=== PATIENT | female | born 1945 | race Two or more races ===

== ENCOUNTER 2021-12-09 12:03 | Inpatient (IN) | payer OTHER ==
[~2021-12-09] VITALS: Ht 154.9 cm; Wt 81.0 kg
[2021-12-09] MEDS ORDERED: SODIUM CHLORIDE 0.9% 1,000 ML IV ONE ×2 (12:15→19:30)
[2021-12-09 14:44] LABS: INR 1.13 (0.9-1.15); Partial Thromboplastin Time 31.9 sec (23.6-33.0)
[2021-12-09 14:45] LABS: Basophils # (auto) 0.1 10 ^3/uL (0-0.2); Basophils % (auto) 0.4 % (0.0-2.0); Eosinophils # (auto) 0.1 10 ^3/uL (0-0.8); Eosinophils % (auto) 0.3 % (0.0-7.0); Hematocrit 42.4 % (36.0-46.0); Hemoglobin 13.7 g/dL (12.2-16.2); Lymphocytes # (auto) 0.2 10 ^3/uL (0.4-5.4); Lymphocytes % (auto) 0.7 % (10.0-50.0); Mean Corpuscular Hemoglobin 28.3 pg (28.0-32.0); Mean Corpuscular Hgb Conc. 32.4 g/dL (32.0-36.0); Mean Corpuscular Volume 87.5 fL (80.0-100.0); Monocytes # (auto) 1.7 10 ^3/uL (0-1.3); Monocytes % (auto) 6.8 % (0.0-12.0); Neutrophils # (auto) 22.7 10 ^3/uL (1.6-8.6); Neutrophils % (auto) 91.8 % (37.0-80.0); Red Blood Cells 4.84 10^6/uL (4.0-5.20); Red Cell Distribution Width 17.8 % (11.8-14.3); White Blood Cell 24.8 10^3/uL (4.4-10.8)
[2021-12-09 15:02] LABS: Albumin 2.1 g/dL (3.4-5.0); Calcium 8.7 mg/dL (8.5-10.1); Magnesium 3.1 mg/dL (1.6-2.6)
[2021-12-09 15:07] LABS: BUN/Creatinine Ratio 29.7; Bilirubin, Total 0.7 mg/dL (0.2-1.0); Total Protein 6.2 g/dL (6.4-8.2)
[2021-12-09 15:23] LABS: Urine Bacteria NONE SEEN /hpf (None Seen); Urine Blood Negative /uL (Negative); Urine Hyaline Cast FEW /lpf (0 - 2); Urine Mucus FEW (None Seen); Urine Specific Gravity 1.017 (1.001-1.035); Urine WBC 1 /hpf (0 - 5)
[2021-12-09 15:25] LABS: Potassium 5.7 mmol/L (3.5-5.1)
[2021-12-09] MEDS ORDERED: MORPHINE SULFATE 4 MG/ML SYR/VIAL IV ONE (15:30)
[2021-12-09] MEDS ORDERED: ONDANSETRON HCL 4 MG/2 ML VIAL IV ONE (15:30)
[2021-12-09] MEDS ORDERED: AZITHROMYCIN 500MG/ 250ML 250 ML IV ONE (16:00)
[2021-12-09] MEDS ORDERED: cefTRIAXone 1GM/50ML D5W 50 ML IV ONE (16:00)
[2021-12-09] MEDS ORDERED: SODIUM BICARBONATE 8.4 % INJ 50ML VIAL IV ONE (17:00)
[2021-12-09] MEDS ORDERED: CALCIUM GLUC 1,000mg/50ml-NS 50 ML IV ONE (17:00)
[2021-12-09] MEDS ORDERED: SODIUM CHLORIDE 0.9% 500 ML IV ONE (18:15)
[2021-12-09] MEDS ORDERED: NITROGLYCERIN 0.4 MG SL TAB SL PRN (18:45)
[2021-12-09] MEDS ORDERED: METOPROLOL TARTRATE 1MG/1ML-5ML VIAL IV ONE ×2 (18:45→19:00)
[2021-12-09] MEDS ORDERED: MORPHINE SULFATE INJ 2 MG/ml SYRG IV PRN (18:45)
[2021-12-09] MEDS ORDERED: ENOXAPARIN SOD 40 MG/0.4 ML SYRINGE SC ONE (19:15)
[2021-12-09] MEDS ORDERED: CARVEDILOL 12.5 MG TAB PO ONE (19:15)
[2021-12-09] MEDS ORDERED: ASPirin 81 mg TAB PO ONE (19:15)
[2021-12-09] MEDS ORDERED: ENOXAPARIN SOD 30 MG/0.3 ML SYRINGE SC ONE (19:30)
[2021-12-09 19:35] LABS: Cholesterol 136 mg/dL (< 200)
[2021-12-09 19:38] LABS: HDL Cholesterol 64 mg/dL (40-59); LDL Cholesterol 58 mg/dL (< 100); Triglycerides 78 mg/dL (< 150)
[2021-12-09 19:55] LABS: Amphetamine Screen, Urine NEGATIVE (NEGATIVE); Barbiturate Scree,Urine NEGATIVE (NEGATIVE); Benzodiazephine Screen, Urine NEGATIVE (NEGATIVE); Cannabinoid Screen, Urine NEGATIVE (NEGATIVE); Cocaine Screen, Urine NEGATIVE (NEGATIVE); Opiate Scree,Urine NEGATIVE (NEGATIVE); Phencyclidine Screen, Urine NEGATIVE (NEGATIVE)
[2021-12-09] MEDS ORDERED: ALBUMIN 5% 250 ML IV ONE (21:30)
[2021-12-09] MEDS: CLINDAMYCIN 300MG IV 50 ML IV SCH (22:15)
[2021-12-09] MEDS: cefTRIAXone 1GM/50ML D5W 50 ML IV SCH (23:13)
[2021-12-09] MEDS: PHENYLEPHRINE IV 250 ML IV SCH (23:36)
[2021-12-10] MEDS: PHENYLEPHRINE IV 250 ML IV SCH ×3 (05:58→22:52)
[2021-12-10] MEDS: CLINDAMYCIN 300MG IV 50 ML IV SCH ×3 (06:20→22:42)
[2021-12-10 07:02] LABS: Hematocrit 37.8 % (36.0-46.0); Hemoglobin 12.5 g/dL (12.2-16.2); Mean Corpuscular Volume 87.7 fL (80.0-100.0); Red Blood Cells 4.31 10^6/uL (4.0-5.20); Red Cell Distribution Width 17.9 % (11.8-14.3); White Blood Cell 20.3 10^3/uL (4.4-10.8)
[2021-12-10 07:05] LABS: BUN/Creatinine Ratio 28.5; Calcium 8.6 mg/dL (8.5-10.1); Potassium 4.9 mmol/L (3.5-5.1)
[2021-12-10 07:12] LABS: Albumin 2.2 g/dL (3.4-5.0); Basophils % (manual) 0 (0.0-2.0); Bilirubin, Total 0.5 mg/dL (0.2-1.0); Blast Cells 0; Eosinophils % (manual) 0 (0-7); Metamyelocytes % 0; Promyelocytes % 0; Reactive Lymphocytes 0; Total Protein 5.8 g/dL (6.4-8.2)
[2021-12-10 08:30] LABS: Band Neutrophils % (manual) 1; Lymphocytes % (manual) 1 (10.0-50.0); Monocytes % (manual) 7 (0-12); Myelocytes % 2
[2021-12-10] MEDS: MORPHINE SULFATE INJ 2 MG/ml SYRG IV PRN ×2 (08:50→16:18)
[2021-12-10] MEDS: CARVEDILOL 12.5 MG TAB PO SCH ×2 (09:32→09:44)
[2021-12-10] MEDS: ENOXAPARIN SOD 30 MG/0.3 ML SYRINGE SC SCH (09:32)
[2021-12-10] MEDS: ASPirin 81 mg TAB PO SCH (09:44)
[2021-12-10] MEDS ORDERED: ENOXAPARIN SOD 40 MG/0.4 ML SYRINGE SC SCH (10:00)
[2021-12-10] MEDS ORDERED: DIGOXIN (250MCG/ML) 2 ML AMPULE IV ONE (17:30)
[2021-12-10] MEDS: ALBUMIN 25% 100 ML IV SCH (18:09)
[2021-12-10] MEDS: cefTRIAXone 1GM/50ML D5W 50 ML IV SCH (22:27)
[2021-12-10] MEDS: HYDROCORTISONE SOD SUCC 100 MG/2ML INJ VIAL IV SCH (22:47)
[2021-12-11] MEDS: ALBUMIN 25% 100 ML IV SCH ×2 (02:13→09:52)
[2021-12-11] MEDS: PHENYLEPHRINE IV 250 ML IV SCH ×2 (02:29→06:12)
[2021-12-11] MEDS: CLINDAMYCIN 300MG IV 50 ML IV SCH ×2 (05:55→14:00)
[2021-12-11] MEDS ORDERED: DIGOXIN (250MCG/ML) 2 ML AMPULE IV SCH (10:00)
[2021-12-11] MEDS: ENOXAPARIN SOD 30 MG/0.3 ML SYRINGE SC SCH (11:26)
[2021-12-11] MEDS: ASPirin 81 mg TAB PO SCH (11:26)
[2021-12-11] MEDS: HYDROCORTISONE SOD SUCC 100 MG/2ML INJ VIAL IV SCH (11:26)
[2021-12-11] MEDS: HYDROcodone-ACET 5/325MG TAB PO PRN (20:38)
[2021-12-11 21:08] LABS: Eosinophils # (auto) 0 10 ^3/uL (0-0.8); Hematocrit 33.5 % (36.0-46.0); Lymphocytes # (auto) 0.1 10 ^3/uL (0.4-5.4); Red Blood Cells 3.77 10^6/uL (4.0-5.20); Red Cell Distribution Width 18.3 % (11.8-14.3)
[2021-12-11 21:12] LABS: Basophils # (auto) 0 10 ^3/uL (0-0.2); Basophils % (auto) 0.1 % (0.0-2.0); Lymphocytes % (auto) 0.8 % (10.0-50.0); Mean Corpuscular Hemoglobin 29.1 pg (28.0-32.0); Mean Corpuscular Hgb Conc. 32.7 g/dL (32.0-36.0); Monocytes # (auto) 1.2 10 ^3/uL (0-1.3); Monocytes % (auto) 7.4 % (0.0-12.0); Neutrophils # (auto) 14.4 10 ^3/uL (1.6-8.6); Neutrophils % (auto) 91.7 % (37.0-80.0); Nucleated Red Blood Cells % 0.2 %; White Blood Cell 15.7 10^3/uL (4.4-10.8)
[2021-12-11 21:25] LABS: Albumin 2.6 g/dL (3.4-5.0); Calcium 8.1 mg/dL (8.5-10.1); Magnesium 2.5 mg/dL (1.6-2.6); Potassium 4.5 mmol/L (3.5-5.1)
[2021-12-11 21:28] LABS: BUN/Creatinine Ratio 32.6; Bilirubin, Total 0.6 mg/dL (0.2-1.0); Total Protein 5.7 g/dL (6.4-8.2)
[2021-12-11] MEDS ORDERED: SODIUM CHLORIDE 0.9% 1,000 ML IV ONE (21:30)
[2021-12-11] MEDS: SODIUM CHLORIDE 0.9% 1,000 ML IV SCH (21:30)
[2021-12-12] VITALS (40 sets, daily range): BP systolic 76–115; BP diastolic 49–76
[2021-12-12] MEDS: PHENYLEPHRINE IV 250 ML IV SCH ×3 (01:32→17:53)
[2021-12-12] MEDS: HYDROcodone-ACET 5/325MG TAB PO PRN ×2 (02:37→23:20)
[2021-12-12] MEDS: SODIUM CHLORIDE 0.9% 1,000 ML IV SCH ×2 (07:32→15:39)
[2021-12-12] MEDS: ASPirin 81 mg TAB PO SCH (09:01)
[2021-12-12] MEDS: ENOXAPARIN SOD 30 MG/0.3 ML SYRINGE SC SCH (09:53)
[2021-12-12 11:33] LABS: BUN/Creatinine Ratio 33.6; Calcium 8.5 mg/dL (8.5-10.1); Hematocrit 34.7 % (36.0-46.0); Hemoglobin 11.2 g/dL (12.2-16.2); Mean Corpuscular Hemoglobin 29.1 pg (28.0-32.0); Mean Corpuscular Hgb Conc. 32.4 g/dL (32.0-36.0); Potassium 4.4 mmol/L (3.5-5.1); Red Blood Cells 3.86 10^6/uL (4.0-5.20); Red Cell Distribution Width 18.8 % (11.8-14.3); White Blood Cell 16.4 10^3/uL (4.4-10.8)
[2021-12-12 11:40] LABS: Basophils % (manual) 0 (0.0-2.0); Blast Cells 0; Myelocytes % 0; Promyelocytes % 0; Reactive Lymphocytes 0
[2021-12-12] MEDS ORDERED: SODIUM CHLORIDE 0.9% 1,000 ML IV ONE (13:45)
[2021-12-12 13:55] LABS: Band Neutrophils % (manual) 23; Eosinophils % (manual) 1 (0-7); Lymphocytes % (manual) 1 (10.0-50.0); Metamyelocytes % 3; Monocytes % (manual) 7 (0-12)
[2021-12-12] MEDS ORDERED: levoFLOXacin 500MG 100 ML IV ONE (15:00)
[2021-12-12] MEDS: CLINDAMYCIN 600MG IV 50 ML IV SCH (22:00)
[2021-12-13] VITALS (44 sets, daily range): BP systolic 90–130; BP diastolic 44–91
[2021-12-13] MEDS: PHENYLEPHRINE IV 250 ML IV SCH ×3 (01:57→10:35)
[2021-12-13] MEDS: SODIUM CHLORIDE 0.9% 1,000 ML IV SCH ×2 (03:30→13:30)
[2021-12-13 03:54] LABS: Hematocrit 33.8 % (36.0-46.0); Hemoglobin 11.1 g/dL (12.2-16.2); Mean Corpuscular Hemoglobin 29.2 pg (28.0-32.0); Mean Corpuscular Hgb Conc. 32.8 g/dL (32.0-36.0); Red Cell Distribution Width 18.4 % (11.8-14.3); White Blood Cell 12.7 10^3/uL (4.4-10.8)
[2021-12-13 04:11] LABS: BUN/Creatinine Ratio 35.4; Calcium 8.3 mg/dL (8.5-10.1); Potassium 4.2 mmol/L (3.5-5.1)
[2021-12-13 04:15] LABS: Basophils % (manual) 0 (0.0-2.0); Blast Cells 0; Eosinophils % (manual) 0 (0-7); Myelocytes % 0; Promyelocytes % 0; Reactive Lymphocytes 0
[2021-12-13] MEDS: CLINDAMYCIN 600MG IV 50 ML IV SCH ×3 (06:11→22:09)
[2021-12-13 07:54] LABS: Band Neutrophils % (manual) 52; Lymphocytes % (manual) 1 (10.0-50.0); Metamyelocytes % 3; Monocytes % (manual) 4 (0-12)
[2021-12-13] MEDS: ASPirin 81 mg TAB PO SCH (09:00)
[2021-12-13] MEDS: levoFLOXacin 250MG 50 ML IV SCH (09:15)
[2021-12-13] MEDS: ENOXAPARIN SOD 30 MG/0.3 ML SYRINGE SC SCH (09:15)
[2021-12-13] MEDS: MIDODRINE HCL 10 MG TAB PO SCH ×2 (11:00→22:09)
[2021-12-13] MEDS ORDERED: SODIUM CHLORIDE 0.9% 1,000 ML IV ONE (11:00)
[2021-12-14] VITALS (38 sets, daily range): BP systolic 82–152; BP diastolic 50–115
[2021-12-14] MEDS: SODIUM CHLORIDE 0.9% 1,000 ML IV SCH (01:46)
[2021-12-14] MEDS: MORPHINE SULFATE INJ 2 MG/ml SYRG IV PRN (01:59)
[2021-12-14] MEDS ORDERED: dilTIAZem 125mg/125ml BAG KIT 100 ML IV SCH (03:00)
[2021-12-14] MEDS ORDERED: dilTIAZem 25 MG/5 ML VIAL IV ONE (03:10)
[2021-12-14] MEDS: PHENYLEPHRINE IV 250 ML IV SCH ×2 (03:15→11:35)
[2021-12-14 04:44] LABS: Hematocrit 38.2 % (36.0-46.0); Hemoglobin 11.9 g/dL (12.2-16.2); Mean Corpuscular Hemoglobin 28.6 pg (28.0-32.0); Mean Corpuscular Hgb Conc. 31.1 g/dL (32.0-36.0); Mean Corpuscular Volume 92.1 fL (80.0-100.0); Red Blood Cells 4.15 10^6/uL (4.0-5.20); Red Cell Distribution Width 19.1 % (11.8-14.3); White Blood Cell 15.4 10^3/uL (4.4-10.8)
[2021-12-14 04:55] LABS: Basophils % (manual) 0 (0.0-2.0); Blast Cells 0; Eosinophils % (manual) 0 (0-7); Myelocytes % 0; Promyelocytes % 0; Reactive Lymphocytes 0
[2021-12-14 05:01] LABS: BUN/Creatinine Ratio 34.1; Calcium 8.4 mg/dL (8.5-10.1); Potassium 4.6 mmol/L (3.5-5.1)
[2021-12-14] MEDS ORDERED: FUROSEMIDE 20 MG/2 ML VIAL IV ONE (05:45)
[2021-12-14] MEDS: CLINDAMYCIN 600MG IV 50 ML IV SCH ×2 (05:53→14:34)
[2021-12-14 06:31] LABS: Band Neutrophils % (manual) 2; Lymphocytes % (manual) 4 (10.0-50.0); Metamyelocytes % 2; Monocytes % (manual) 8 (0-12)
[2021-12-14] MEDS: MIDODRINE HCL 10 MG TAB PO SCH (09:36)
[2021-12-14] MEDS: ASPirin 81 mg TAB PO SCH (09:36)
[2021-12-14] MEDS: levoFLOXacin 250MG 50 ML IV SCH (09:37)
[2021-12-14] MEDS: Ensure HIGH Protein Chocolate 8oz Bottle PO SCH ×2 (14:32→18:52)
[2021-12-14] MEDS: ALBUTEROL SULF 2.5 MG/0.5ML(0.5%) NEB SOLN NEB PRN (15:18)
[2021-12-14] MEDS: METOPROLOL TARTRATE 25 MG TAB PO SCH ×2 (16:00→22:02)
[2021-12-14] MEDS: APIXABAN 5 MG TAB PO SCH (21:55)
[2021-12-15] VITALS: BP 110/63
[2021-12-15 01:00] VITALS: BP 106/68
[2021-12-15] MEDS: Ensure HIGH Protein Chocolate 8oz Bottle PO SCH ×3 (08:00→18:00)
[2021-12-15] MEDS: levoFLOXacin 250MG 50 ML IV SCH (10:30)
[2021-12-15] MEDS: APIXABAN 5 MG TAB PO SCH ×2 (10:45→22:14)
[2021-12-15] MEDS: ASPirin 81 mg TAB PO SCH (10:45)
[2021-12-15] MEDS: METOPROLOL TARTRATE 25 MG TAB PO SCH ×2 (10:46→22:15)
[2021-12-15 14:39] LABS: Hemoglobin 11.4 g/dL (12.2-16.2); Mean Corpuscular Hemoglobin 28.3 pg (28.0-32.0); Mean Corpuscular Hgb Conc. 31.5 g/dL (32.0-36.0); Mean Corpuscular Volume 89.8 fL (80.0-100.0); Red Blood Cells 4.01 10^6/uL (4.0-5.20); Red Cell Distribution Width 18.9 % (11.8-14.3); White Blood Cell 16.1 10^3/uL (4.4-10.8)
[2021-12-15 14:56] LABS: Basophils % (manual) 0 (0.0-2.0); Blast Cells 0; Eosinophils % (manual) 0 (0-7); Promyelocytes % 0; Reactive Lymphocytes 0
[2021-12-15 15:01] LABS: BUN/Creatinine Ratio 31.2; Calcium 9.1 mg/dL (8.5-10.1)
[2021-12-15 15:57] LABS: Band Neutrophils % (manual) 3; Lymphocytes % (manual) 2 (10.0-50.0); Metamyelocytes % 1; Myelocytes % 1
[2021-12-15 15:58] LABS: Monocytes % (manual) 5 (0-12)
[2021-12-15 17:56] VITALS: BP 130/80
[2021-12-15 22:00] VITALS: BP 132/75
[2021-12-16] VITALS (61 sets, daily range): BP systolic 59–135; BP diastolic 30–73
[2021-12-16 07:27] LABS: Hematocrit 35.5 % (36.0-46.0); Hemoglobin 11.7 g/dL (12.2-16.2); Mean Corpuscular Hemoglobin 29.7 pg (28.0-32.0); Mean Corpuscular Hgb Conc. 32.8 g/dL (32.0-36.0); Mean Corpuscular Volume 90.6 fL (80.0-100.0); Red Blood Cells 3.92 10^6/uL (4.0-5.20); Red Cell Distribution Width 19.2 % (11.8-14.3); White Blood Cell 16.3 10^3/uL (4.4-10.8)
[2021-12-16] MEDS: Ensure HIGH Protein Chocolate 8oz Bottle PO SCH (07:53)
[2021-12-16 07:54] LABS: BUN/Creatinine Ratio 31.3; Potassium 5.5 mmol/L (3.5-5.1)
[2021-12-16 08:04] LABS: Basophils % (manual) 0 (0.0-2.0); Blast Cells 0; Eosinophils % (manual) 0 (0-7); Myelocytes % 0; Promyelocytes % 0; Reactive Lymphocytes 0
[2021-12-16 09:52] LABS: Band Neutrophils % (manual) 4; Lymphocytes % (manual) 2 (10.0-50.0); Metamyelocytes % 3; Monocytes % (manual) 7 (0-12)
[2021-12-16] MEDS: ASPirin 81 mg TAB PO SCH (10:00)
[2021-12-16] MEDS: APIXABAN 5 MG TAB PO SCH ×2 (10:00→22:25)
[2021-12-16] MEDS: METOPROLOL TARTRATE 25 MG TAB PO SCH ×2 (10:00→22:25)
[2021-12-16] MEDS ORDERED: AMIODARONE HCL (50 MG/ ML) 3 ML VIAL IV ONE (10:26)
[2021-12-16] MEDS ORDERED: fentaNYL Drip 2500mCg/250mlNS 250 ML IV ONE (10:26)
[2021-12-16] MEDS ORDERED: PHENYLEPHRINE IV 250 ML IV ONE (10:26)
[2021-12-16] MEDS ORDERED: AMIODARONE 450mg/250ml AE 250 ML IV ONE (10:27)
[2021-12-16] MEDS ORDERED: AMIODARONE HCL 150 MG in D5W 5% 100 ML IV ONE (10:30)
[2021-12-16] MEDS: MIDAZOLAM DRIP 50 mg/50mL 50 ML IV SCH ×2 (10:30→16:10)
[2021-12-16] MEDS ORDERED: VASOPRESSIN 50 UNITS in D5W 5% 247.5 ML IV SCH (10:30)
[2021-12-16] MEDS: PHENYLEPHRINE IV 250 ML IV SCH ×3 (10:30→18:07)
[2021-12-16 10:34] LABS: Hematocrit 40.1 % (36.0-46.0); Hemoglobin 12.5 g/dL (12.2-16.2); Mean Corpuscular Hemoglobin 28.5 pg (28.0-32.0); Mean Corpuscular Hgb Conc. 31.3 g/dL (32.0-36.0); Mean Corpuscular Volume 91.2 fL (80.0-100.0); Red Blood Cells 4.39 10^6/uL (4.0-5.20); Red Cell Distribution Width 19.8 % (11.8-14.3); White Blood Cell 18.2 10^3/uL (4.4-10.8)
[2021-12-16] MEDS: NOREPINEPHRINE 8 MG/250ML KIT 250 ML IV SCH (10:43)
[2021-12-16] MEDS ORDERED: AMIODARONE 450mg/250ml AE 250 ML IV SCH ×2 (10:45→16:45)
[2021-12-16 10:46] LABS: BUN/Creatinine Ratio 30.7; Calcium 8.6 mg/dL (8.5-10.1)
[2021-12-16 10:57] LABS: Basophils % (manual) 0 (0.0-2.0); Blast Cells 0; Eosinophils % (manual) 0 (0-7); Metamyelocytes % 0; Myelocytes % 0; Promyelocytes % 0; Reactive Lymphocytes 0
[2021-12-16] MEDS: fentaNYL Drip 2500mCg/250mlNS 250 ML IV SCH (11:00)
[2021-12-16 11:12] LABS: Potassium 6.3 mmol/L (3.5-5.1)
[2021-12-16] MEDS: PROPOFOL 100 ML IV SCH (11:36)
[2021-12-16] MEDS ORDERED: SODIUM CHLORIDE 0.9% 1,000 ML IV ONE (12:00)
[2021-12-16 12:01] LABS: Lactic Acid w/Reflex 2.6 mmol/L (0.4-2.0)
[2021-12-16] MEDS ORDERED: SODIUM BICARBONATE 8.4% INJ 50ML SYRINGE IV ONE ×2 (12:38→14:00)
[2021-12-16] MEDS ORDERED: EPINEPHrine HCL 1 MG/10 ML SYRG IV ONE (12:38)
[2021-12-16] MEDS ORDERED: VANCOMYCIN 1GM/250ML 250 ML IV ONE (12:45)
[2021-12-16] MEDS ORDERED: VANCOMYCIN PER PHARMACY 0 MG IV SCH (12:45)
[2021-12-16] MEDS ORDERED: DEXTROSE (50%) 50ML SYRG IV ONE (13:15)
[2021-12-16] MEDS ORDERED: InsuLIN REG 1unit/0.01ml Soln (100units/ml) IV ONE (13:15)
[2021-12-16 13:44] LABS: Band Neutrophils % (manual) 9; Lymphocytes % (manual) 6 (10.0-50.0); Monocytes % (manual) 6 (0-12)
[2021-12-16] MEDS: SODIUM ZIRCONIUM CYCL 10 GM PAK PO ONE ×2 (13:45→16:49)
[2021-12-16] MEDS ORDERED: CALCIUM GLUC 1,000mg/50ml-NS 50 ML IV ONE (14:00)
[2021-12-16] MEDS: levoFLOXacin 250MG 50 ML IV SCH (14:34)
[2021-12-16] MEDS: SODIUM BICARBONATE 50ML VIAL 150 ML in D5W 5% 1,000 ML IV SCH (16:07)
[2021-12-16] MEDS ORDERED: BUMETANIDE 2.5mg/10ml (0.25 mg/ml) INJ IV ONE (16:45)
[2021-12-16 17:13] LABS: Potassium 4.8 mmol/L (3.5-5.1)
[2021-12-16 17:15] LABS: Magnesium 2.3 mg/dL (1.6-2.6)
[2021-12-16 17:34] LABS: BUN/Creatinine Ratio 31.7; Calcium 7.8 mg/dL (8.5-10.1); Potassium 4.8 mmol/L (3.5-5.1)
[2021-12-16] MEDS: FUROSEMIDE 100 MG/10ML VIAL IV SCH (18:00)
[2021-12-16] MEDS: SODIUM ZIRCONIUM CYCL 10 GM PAK PO SCH (22:24)
[2021-12-17] VITALS (107 sets, daily range): BP systolic 85–119; BP diastolic 39–67
[2021-12-17] MEDS: FUROSEMIDE 100 MG/10ML VIAL IV SCH ×4 (00:30→17:58)
[2021-12-17] MEDS: NOREPINEPHRINE 8 MG/250ML KIT 250 ML IV SCH ×3 (00:47→21:09)
[2021-12-17] MEDS: PHENYLEPHRINE IV 250 ML IV SCH ×3 (03:10→22:21)
[2021-12-17 04:13] LABS: Hematocrit 33.5 % (36.0-46.0); Mean Corpuscular Hemoglobin 28.6 pg (28.0-32.0); Mean Corpuscular Hgb Conc. 32.7 g/dL (32.0-36.0); Mean Corpuscular Volume 87.5 fL (80.0-100.0); Red Blood Cells 3.82 10^6/uL (4.0-5.20); Red Cell Distribution Width 18.5 % (11.8-14.3)
[2021-12-17 04:47] LABS: Albumin 1.9 g/dL (3.4-5.0); BUN/Creatinine Ratio 30.3; Calcium 7.5 mg/dL (8.5-10.1); Magnesium 2.3 mg/dL (1.6-2.6); Potassium 4.7 mmol/L (3.5-5.1)
[2021-12-17] MEDS: MIDAZOLAM DRIP 50 mg/50mL 50 ML IV SCH ×2 (04:48→15:31)
[2021-12-17 04:49] LABS: Bilirubin, Total 0.7 mg/dL (0.2-1.0); Total Protein 4.5 g/dL (6.4-8.2)
[2021-12-17] MEDS: SODIUM BICARBONATE 50ML VIAL 150 ML in D5W 5% 1,000 ML IV SCH ×2 (04:49→12:48)
[2021-12-17 04:50] LABS: Basophils % (manual) 0 (0.0-2.0); Blast Cells 0; Eosinophils % (manual) 0 (0-7); Metamyelocytes % 0; Myelocytes % 0; Promyelocytes % 0; Reactive Lymphocytes 0
[2021-12-17] MEDS: SODIUM ZIRCONIUM CYCL 10 GM PAK PO SCH ×3 (06:17→22:00)
[2021-12-17 06:43] LABS: Band Neutrophils % (manual) 34; Lymphocytes % (manual) 1 (10.0-50.0); Monocytes % (manual) 4 (0-12)
[2021-12-17] MEDS: ASPirin 81 mg TAB PO SCH (09:57)
[2021-12-17] MEDS: APIXABAN 5 MG TAB PO SCH ×2 (09:58→22:21)
[2021-12-17] MEDS: levoFLOXacin 250MG 50 ML IV SCH (09:58)
[2021-12-17] MEDS: METOPROLOL TARTRATE 25 MG TAB PO SCH ×2 (09:58→22:20)
[2021-12-17] MEDS ORDERED: VANCOMYCIN PER PHARMACY 0 MG IV SCH (17:45)
[2021-12-17] MEDS: PIPERACILLIN-TAZOB 2.25GM 50 ML IV SCH (17:59)
[2021-12-17] MEDS: fentaNYL Drip 2500mCg/250mlNS 250 ML IV SCH (21:14)
[2021-12-17] MEDS: PROPOFOL 100 ML IV SCH (22:22)
[2021-12-18] VITALS (101 sets, daily range): BP systolic 83–121; BP diastolic 46–74
[2021-12-18] MEDS: FUROSEMIDE 100 MG/10ML VIAL IV SCH ×4 (00:29→22:34)
[2021-12-18] MEDS: PIPERACILLIN-TAZOB 2.25GM 50 ML IV SCH ×4 (00:29→17:25)
[2021-12-18] MEDS: MIDAZOLAM DRIP 50 mg/50mL 50 ML IV SCH ×2 (00:31→11:39)
[2021-12-18] MEDS: NOREPINEPHRINE 8 MG/250ML KIT 250 ML IV SCH ×3 (04:02→21:23)
[2021-12-18] MEDS: PHENYLEPHRINE IV 250 ML IV SCH ×3 (04:10→20:50)
[2021-12-18 04:26] LABS: Red Cell Distribution Width 18.1 % (11.8-14.3)
[2021-12-18 04:28] LABS: Hematocrit 29.8 % (36.0-46.0); Hemoglobin 10.2 g/dL (12.2-16.2); Mean Corpuscular Hemoglobin 29.5 pg (28.0-32.0); Mean Corpuscular Hgb Conc. 34.4 g/dL (32.0-36.0); Mean Corpuscular Volume 85.9 fL (80.0-100.0); Red Blood Cells 3.46 10^6/uL (4.0-5.20); White Blood Cell 20.7 10^3/uL (4.4-10.8)
[2021-12-18 04:38] LABS: Basophils % (manual) 0 (0.0-2.0); Blast Cells 0; Eosinophils % (manual) 0 (0-7); Metamyelocytes % 0; Promyelocytes % 0; Reactive Lymphocytes 0
[2021-12-18 04:48] LABS: Calcium 7.6 mg/dL (8.5-10.1); Potassium 3.4 mmol/L (3.5-5.1)
[2021-12-18 04:50] LABS: BUN/Creatinine Ratio 28.8
[2021-12-18] MEDS: SODIUM ZIRCONIUM CYCL 10 GM PAK PO SCH (05:51)
[2021-12-18] MEDS: SODIUM BICARBONATE 50ML VIAL 150 ML in D5W 5% 1,000 ML IV SCH (06:08)
[2021-12-18 08:42] LABS: Band Neutrophils % (manual) 1; Lymphocytes % (manual) 1 (10.0-50.0); Monocytes % (manual) 3 (0-12); Myelocytes % 2
[2021-12-18] MEDS ORDERED: VANCOMYCIN 1GM/250ML 250 ML IV ONE (09:30)
[2021-12-18] MEDS: ASPirin 81 mg TAB PO SCH (10:00)
[2021-12-18] MEDS: METOPROLOL TARTRATE 25 MG TAB PO SCH ×2 (10:00→22:35)
[2021-12-18] MEDS: APIXABAN 5 MG TAB PO SCH ×2 (10:11→22:00)
[2021-12-18] MEDS: POTASSIUM CHL 20MEQ/100ML 100 ML IV SCH ×3 (10:11→14:02)
[2021-12-18] MEDS ORDERED: METOCLOPRAMIDE HCL 5MG/ml INJ 2ml VIAL IV PRN (10:30)
[2021-12-18] MEDS: PROPOFOL 100 ML IV SCH (10:30)
[2021-12-18] MEDS ORDERED: PANTOPRAZOLE 40 MG/10 ML VIAL INJ IV ONE (16:00)
[2021-12-18] MEDS: fentaNYL Drip 2500mCg/250mlNS 250 ML IV SCH (21:10)
[2021-12-19] VITALS (96 sets, daily range): BP systolic 86–124; BP diastolic 38–74
[2021-12-19] MEDS: PIPERACILLIN-TAZOB 2.25GM 50 ML IV SCH ×5 (00:17→23:15)
[2021-12-19] MEDS: MIDAZOLAM DRIP 50 mg/50mL 50 ML IV SCH ×3 (01:08→21:07)
[2021-12-19] MEDS: NOREPINEPHRINE 8 MG/250ML KIT 250 ML IV SCH ×2 (04:51→20:32)
[2021-12-19] MEDS: PHENYLEPHRINE IV 250 ML IV SCH ×2 (05:10→21:28)
[2021-12-19 05:23] LABS: Hematocrit 28.9 % (36.0-46.0); Hemoglobin 9.9 g/dL (12.2-16.2); Mean Corpuscular Hemoglobin 29.3 pg (28.0-32.0); Mean Corpuscular Hgb Conc. 34.4 g/dL (32.0-36.0); Mean Corpuscular Volume 85.3 fL (80.0-100.0); Red Blood Cells 3.38 10^6/uL (4.0-5.20); Red Cell Distribution Width 18.1 % (11.8-14.3); White Blood Cell 17.6 10^3/uL (4.4-10.8)
[2021-12-19 05:52] LABS: BUN/Creatinine Ratio 31.1; Calcium 8.2 mg/dL (8.5-10.1)
[2021-12-19 05:59] LABS: Basophils % (manual) 0 (0.0-2.0); Blast Cells 0; Eosinophils % (manual) 0 (0-7); Metamyelocytes % 0; Myelocytes % 0; Promyelocytes % 0; Reactive Lymphocytes 0
[2021-12-19 06:50] LABS: Potassium 2.8 mmol/L (3.5-5.1)
[2021-12-19 09:06] LABS: Band Neutrophils % (manual) 1; Lymphocytes % (manual) 2 (10.0-50.0); Monocytes % (manual) 8 (0-12)
[2021-12-19] MEDS: POTASSIUM CHL 20MEQ/100ML 100 ML IV SCH ×4 (09:35→14:57)
[2021-12-19] MEDS: APIXABAN 5 MG TAB PO SCH ×2 (09:53→21:08)
[2021-12-19] MEDS: ASPirin 81 mg TAB PO SCH (09:57)
[2021-12-19] MEDS: METOPROLOL TARTRATE 25 MG TAB PO SCH ×2 (09:57→21:07)
[2021-12-19] MEDS: PANTOPRAZOLE 40 MG/10 ML VIAL INJ IV SCH ×2 (09:57→10:26)
[2021-12-19] MEDS: FUROSEMIDE 100 MG/10ML VIAL IV SCH (10:00)
[2021-12-19] MEDS ORDERED: VANCOMYCIN 500 MG in D5W 5% 100 ML IV ONE (11:00)
[2021-12-19] MEDS ORDERED: POTASSIUM CHL 20MEQ/100ML 200 ML IV ONE (20:00)
[2021-12-19] MEDS ORDERED: POTASSIUM CHL 20MEQ/100ML 100 ML IV ONE (21:09)
[2021-12-19] MEDS: fentaNYL Drip 2500mCg/250mlNS 250 ML IV SCH (21:29)
[2021-12-19] MEDS: PROPOFOL 100 ML IV SCH (21:29)
[2021-12-19 22:31] LABS: BUN/Creatinine Ratio 32.7; Calcium 8.3 mg/dL (8.5-10.1); Potassium 3.6 mmol/L (3.5-5.1)
[2021-12-20] VITALS (103 sets, daily range): BP systolic 82–121; BP diastolic 56–74
[2021-12-20 04:30] LABS: Hematocrit 27.7 % (36.0-46.0); Hemoglobin 9.5 g/dL (12.2-16.2); Mean Corpuscular Hemoglobin 29.5 pg (28.0-32.0); Mean Corpuscular Hgb Conc. 34.4 g/dL (32.0-36.0); Mean Corpuscular Volume 85.8 fL (80.0-100.0); Red Blood Cells 3.23 10^6/uL (4.0-5.20); Red Cell Distribution Width 18.1 % (11.8-14.3); White Blood Cell 13.9 10^3/uL (4.4-10.8)
[2021-12-20 04:32] LABS: Basophils % (manual) 0 (0.0-2.0); Blast Cells 0; Eosinophils % (manual) 0 (0-7); Metamyelocytes % 0; Promyelocytes % 0; Reactive Lymphocytes 0
[2021-12-20 04:57] LABS: BUN/Creatinine Ratio 33.8; Calcium 8.2 mg/dL (8.5-10.1)
[2021-12-20] MEDS: PIPERACILLIN-TAZOB 2.25GM 50 ML IV SCH (05:17)
[2021-12-20] MEDS: PHENYLEPHRINE IV 250 ML IV SCH ×2 (05:41→21:43)
[2021-12-20] MEDS: NOREPINEPHRINE 8 MG/250ML KIT 250 ML IV SCH ×2 (06:15→19:28)
[2021-12-20 07:52] LABS: Band Neutrophils % (manual) 1; Lymphocytes % (manual) 2 (10.0-50.0); Monocytes % (manual) 4 (0-12); Myelocytes % 2
[2021-12-20 09:26] LABS: Phosphorus 2.6 mg/dL (2.5-4.90)
[2021-12-20] MEDS: POTASSIUM CHL 20MEQ/100ML 100 ML IV SCH ×2 (09:51→10:58)
[2021-12-20] MEDS: ASPirin 81 mg TAB PO SCH (09:54)
[2021-12-20] MEDS: FUROSEMIDE 100 MG/10ML VIAL IV SCH (09:54)
[2021-12-20] MEDS: APIXABAN 5 MG TAB PO SCH ×2 (09:54→21:47)
[2021-12-20] MEDS: METOPROLOL TARTRATE 25 MG TAB PO SCH ×2 (09:55→21:47)
[2021-12-20 11:34] LABS: Protein, Urine 17.4 mg/dL (0.0-11.9)
[2021-12-20] MEDS ORDERED: levoFLOXacin 500MG 100 ML IV SCH (13:00)
[2021-12-20] MEDS ORDERED: Nepro With Carb Steady 1 Liter Bottle GT SCH (13:45)
[2021-12-20] MEDS ORDERED: PIPERACILLIN-TAZOB 3.375GM 100 ML IV SCH ×2 (14:00→15:15)
[2021-12-20] MEDS: fentaNYL Drip 2500mCg/250mlNS 250 ML IV SCH (15:00)
[2021-12-20] MEDS: PROPOFOL 100 ML IV SCH (20:13)
[2021-12-21] VITALS (107 sets, daily range): BP systolic 87–130; BP diastolic 52–77
[2021-12-21 03:47] LABS: Hemoglobin 9.5 g/dL (12.2-16.2)
[2021-12-21 03:48] LABS: Hematocrit 29.1 % (36.0-46.0); Mean Corpuscular Hemoglobin 28.4 pg (28.0-32.0); Mean Corpuscular Hgb Conc. 32.6 g/dL (32.0-36.0); Mean Corpuscular Volume 87.3 fL (80.0-100.0); Red Blood Cells 3.34 10^6/uL (4.0-5.20); Red Cell Distribution Width 18.8 % (11.8-14.3); White Blood Cell 12.8 10^3/uL (4.4-10.8)
[2021-12-21 03:54] LABS: Basophils % (manual) 0 (0.0-2.0); Blast Cells 0; Eosinophils % (manual) 0 (0-7); Metamyelocytes % 0; Myelocytes % 0; Promyelocytes % 0; Reactive Lymphocytes 0
[2021-12-21 04:29] LABS: Potassium 2.5 mmol/L (3.5-5.1)
[2021-12-21 04:39] LABS: Band Neutrophils % (manual) 2; Lymphocytes % (manual) 3 (10.0-50.0); Monocytes % (manual) 7 (0-12)
[2021-12-21] MEDS ORDERED: POTASSIUM CHL 20MEQ/100ML 200 ML IV ONE (04:51)
[2021-12-21] MEDS: POTASSIUM CHL 20MEQ/100ML 100 ML IV SCH ×5 (04:59→14:38)
[2021-12-21] MEDS: NOREPINEPHRINE 8 MG/250ML KIT 250 ML IV SCH ×3 (05:15→23:47)
[2021-12-21] MEDS: PHENYLEPHRINE IV 250 ML IV SCH ×3 (07:10→22:51)
[2021-12-21] MEDS: PANTOPRAZOLE 40 MG/10 ML VIAL INJ IV SCH (09:06)
[2021-12-21] MEDS: APIXABAN 5 MG TAB PO SCH ×2 (09:07→21:29)
[2021-12-21] MEDS: METOPROLOL TARTRATE 25 MG TAB PO SCH (09:07)
[2021-12-21] MEDS: ASPirin 81 mg TAB PO SCH (09:07)
[2021-12-21] MEDS ORDERED: levoFLOXacin 250MG 50 ML IV SCH (10:00)
[2021-12-21] MEDS: FUROSEMIDE 100 MG/10ML VIAL IV SCH (10:00)
[2021-12-21] MEDS: ALBUTEROL SULF 2.5 MG/0.5ML(0.5%) NEB SOLN NEB PRN (11:04)
[2021-12-21] MEDS: MIDAZOLAM DRIP 50 mg/50mL 50 ML IV SCH (17:10)
[2021-12-21] MEDS: fentaNYL Drip 2500mCg/250mlNS 250 ML IV SCH (20:00)
[2021-12-21] MEDS: PROPOFOL 100 ML IV SCH (20:00)
[2021-12-22] VITALS (106 sets, daily range): BP systolic 89–118; BP diastolic 49–77
[2021-12-22 04:22] LABS: Hematocrit 26.1 % (36.0-46.0); Hemoglobin 8.9 g/dL (12.2-16.2); Mean Corpuscular Hemoglobin 29.9 pg (28.0-32.0); Mean Corpuscular Hgb Conc. 33.9 g/dL (32.0-36.0); Mean Corpuscular Volume 87.9 fL (80.0-100.0); Red Blood Cells 2.97 10^6/uL (4.0-5.20); Red Cell Distribution Width 18.8 % (11.8-14.3)
[2021-12-22 04:27] LABS: Basophils % (manual) 0 (0.0-2.0); Blast Cells 0; Eosinophils % (manual) 0 (0-7); Metamyelocytes % 0; Myelocytes % 0; Promyelocytes % 0; Reactive Lymphocytes 0
[2021-12-22 04:37] LABS: BUN/Creatinine Ratio 35.3
[2021-12-22 04:46] LABS: Potassium 2.9 mmol/L (3.5-5.1)
[2021-12-22 05:07] LABS: Band Neutrophils % (manual) 2; Lymphocytes % (manual) 4 (10.0-50.0); Monocytes % (manual) 7 (0-12)
[2021-12-22] MEDS: MIDAZOLAM DRIP 50 mg/50mL 50 ML IV SCH (08:01)
[2021-12-22] MEDS: NOREPINEPHRINE 8 MG/250ML KIT 250 ML IV SCH ×2 (08:03→18:50)
[2021-12-22] MEDS: PHENYLEPHRINE IV 250 ML IV SCH ×2 (08:10→16:30)
[2021-12-22] MEDS: fentaNYL Drip 2500mCg/250mlNS 250 ML IV SCH (09:30)
[2021-12-22] MEDS ORDERED: POTASSIUM CHL 20 Meq TABLET PO ONE (10:00)
[2021-12-22] MEDS: PROPOFOL 100 ML IV SCH (10:30)
[2021-12-22] MEDS: PANTOPRAZOLE 40 MG/10 ML VIAL INJ IV SCH (10:31)
[2021-12-22] MEDS: POTASSIUM CHL 20MEQ/100ML 100 ML IV SCH ×2 (10:31→12:39)
[2021-12-22] MEDS: ASPirin 81 mg TAB PO SCH (10:36)
[2021-12-22] MEDS: APIXABAN 5 MG TAB PO SCH ×2 (10:37→22:32)
[2021-12-22] MEDS: FUROSEMIDE 40 MG/4 ML VIAL IV SCH (15:41)
[2021-12-23] VITALS (103 sets, daily range): BP systolic 88–122; BP diastolic 46–74
[2021-12-23] MEDS: PHENYLEPHRINE IV 250 ML IV SCH ×3 (00:50→17:30)
[2021-12-23] MEDS: FUROSEMIDE 40 MG/4 ML VIAL IV SCH (09:58)
[2021-12-23] MEDS: APIXABAN 5 MG TAB PO SCH ×2 (09:58→22:05)
[2021-12-23] MEDS: PANTOPRAZOLE 40 MG/10 ML VIAL INJ IV SCH (09:58)
[2021-12-23] MEDS: ASPirin 81 mg TAB PO SCH (09:58)
[2021-12-23] MEDS: fentaNYL Drip 2500mCg/250mlNS 250 ML IV SCH (10:30)
[2021-12-23] MEDS: MIDAZOLAM DRIP 50 mg/50mL 50 ML IV SCH ×2 (10:30→17:27)
[2021-12-23] MEDS: PROPOFOL 100 ML IV SCH (10:30)
[2021-12-23] MEDS ORDERED: POTASSIUM EFFERVESENT TAB 25 MEQ GT ONE ×2 (10:45)
[2021-12-23] MEDS ORDERED: POTASSIUM CHL 20MEQ/100ML 100 ML IV SCH ×2 (10:45→16:00)
[2021-12-23] MEDS: POTASSIUM CHL 20MEQ/100ML 100 ML IV SCH ×4 (11:34→18:00)
[2021-12-23] MEDS: NOREPINEPHRINE 8 MG/250ML KIT 250 ML IV SCH (22:05)
[2021-12-24] VITALS (106 sets, daily range): BP systolic 71–125; BP diastolic 37–83
[2021-12-24] MEDS: PHENYLEPHRINE IV 250 ML IV SCH ×3 (01:50→18:30)
[2021-12-24 04:53] LABS: Mean Corpuscular Hemoglobin 30.4 pg (28.0-32.0); White Blood Cell 9.6 10^3/uL (4.4-10.8)
[2021-12-24 04:55] LABS: Hematocrit 23.6 % (36.0-46.0); Hemoglobin 7.8 g/dL (12.2-16.2); Mean Corpuscular Hgb Conc. 33.1 g/dL (32.0-36.0); Mean Corpuscular Volume 91.7 fL (80.0-100.0); Red Blood Cells 2.57 10^6/uL (4.0-5.20); Red Cell Distribution Width 19.8 % (11.8-14.3)
[2021-12-24 05:03] LABS: Basophils % (manual) 0 (0.0-2.0); Blast Cells 0; Eosinophils % (manual) 0 (0-7); Metamyelocytes % 0; Promyelocytes % 0; Reactive Lymphocytes 0
[2021-12-24 05:14] LABS: BUN/Creatinine Ratio 41.7; Calcium 8.2 mg/dL (8.5-10.1); Potassium 4.5 mmol/L (3.5-5.1)
[2021-12-24 08:18] LABS: Band Neutrophils % (manual) 6; Lymphocytes % (manual) 5 (10.0-50.0); Monocytes % (manual) 3 (0-12); Myelocytes % 1
[2021-12-24] MEDS: APIXABAN 5 MG TAB PO SCH ×2 (10:18→21:52)
[2021-12-24] MEDS: ASPirin 81 mg TAB PO SCH (10:18)
[2021-12-24] MEDS: PANTOPRAZOLE 40 MG/10 ML VIAL INJ IV SCH (10:19)
[2021-12-24] MEDS: PROPOFOL 100 ML IV SCH (10:30)
[2021-12-24] MEDS: fentaNYL Drip 2500mCg/250mlNS 250 ML IV SCH ×2 (10:30→23:49)
[2021-12-24] MEDS: FUROSEMIDE 40 MG/4 ML VIAL IV SCH (10:53)
[2021-12-24] MEDS: D5W 5% 1,000 ML IV SCH ×2 (14:48→23:43)
[2021-12-24] MEDS: NOREPINEPHRINE 8 MG/250ML KIT 250 ML IV SCH (23:44)
[2021-12-25] VITALS (102 sets, daily range): BP systolic 56–134; BP diastolic 26–86
[2021-12-25] MEDS: PHENYLEPHRINE IV 250 ML IV SCH ×3 (02:50→19:30)
[2021-12-25] MEDS: MIDAZOLAM DRIP 50 mg/50mL 50 ML IV SCH ×2 (02:57→10:32)
[2021-12-25] MEDS: SOD CHL 0.45% 1,000 ML IV SCH ×2 (08:00→23:00)
[2021-12-25 09:16] LABS: Hematocrit 21.8 % (36.0-46.0); Hemoglobin 7.1 g/dL (12.2-16.2); Mean Corpuscular Hemoglobin 30.4 pg (28.0-32.0); Mean Corpuscular Hgb Conc. 32.4 g/dL (32.0-36.0); Mean Corpuscular Volume 93.7 fL (80.0-100.0); Red Blood Cells 2.32 10^6/uL (4.0-5.20); White Blood Cell 9.6 10^3/uL (4.4-10.8)
[2021-12-25 09:18] LABS: Red Cell Distribution Width 22.3 % (11.8-14.3)
[2021-12-25 09:22] LABS: Basophils % (manual) 0 (0.0-2.0); Blast Cells 0; Eosinophils % (manual) 0 (0-7); Promyelocytes % 0; Reactive Lymphocytes 0
[2021-12-25 09:23] LABS: Albumin 1.8 g/dL (3.4-5.0); Calcium 7.8 mg/dL (8.5-10.1); Potassium 3.8 mmol/L (3.5-5.1)
[2021-12-25 09:25] LABS: BUN/Creatinine Ratio 46.9; Bilirubin, Total 0.9 mg/dL (0.2-1.0); Total Protein 5.3 g/dL (6.4-8.2)
[2021-12-25 09:30] LABS: INR 1.19 (0.9-1.15); Partial Thromboplastin Time 30.2 sec (23.6-33.0)
[2021-12-25] MEDS: FUROSEMIDE 40 MG/4 ML VIAL IV SCH (10:00)
[2021-12-25] MEDS: PROPOFOL 100 ML IV SCH (10:30)
[2021-12-25] MEDS: PANTOPRAZOLE 40 MG/10 ML VIAL INJ IV SCH (10:32)
[2021-12-25] MEDS: Jevity 1.2 Cal/Fiber 1 Liter GT SCH (10:44)
[2021-12-25] MEDS: ASPirin 81 mg TAB PO SCH (10:44)
[2021-12-25] MEDS: APIXABAN 5 MG TAB PO SCH ×2 (10:44→22:00)
[2021-12-25] MEDS: NOREPINEPHRINE 8 MG/250ML KIT 250 ML IV SCH ×2 (10:46→18:49)
[2021-12-25 12:20] LABS: Band Neutrophils % (manual) 3; Lymphocytes % (manual) 7 (10.0-50.0); Metamyelocytes % 2; Monocytes % (manual) 5 (0-12); Myelocytes % 1
[2021-12-25] MEDS: fentaNYL Drip 2500mCg/250mlNS 250 ML IV SCH (18:47)
[2021-12-26] VITALS (106 sets, daily range): BP systolic 105–135; BP diastolic 57–87
[2021-12-26] MEDS: NOREPINEPHRINE 8 MG/250ML KIT 250 ML IV SCH ×3 (01:40→17:30)
[2021-12-26] MEDS: PHENYLEPHRINE IV 250 ML IV SCH (03:46)
[2021-12-26] MEDS: APIXABAN 5 MG TAB PO SCH ×2 (10:00→22:00)
[2021-12-26] MEDS: FUROSEMIDE 40 MG/4 ML VIAL IV SCH (10:30)
[2021-12-26] MEDS: PROPOFOL 100 ML IV SCH (10:30)
[2021-12-26] MEDS: ASPirin 81 mg TAB PO SCH (10:31)
[2021-12-26] MEDS: PANTOPRAZOLE 40 MG/10 ML VIAL INJ IV SCH (10:31)
[2021-12-26] MEDS: SOD CHL 0.45% 1,000 ML IV SCH ×2 (10:57→23:00)
[2021-12-26] MEDS: fentaNYL Drip 2500mCg/250mlNS 250 ML IV SCH (14:05)
[2021-12-26] MEDS: Jevity 1.2 Cal/Fiber 1 Liter GT SCH (20:00)
[2021-12-26 21:25] LABS: Basophils # (auto) 0 10 ^3/uL (0-0.2); Eosinophils # (auto) 0 10 ^3/uL (0-0.8); Eosinophils % (auto) 0.5 % (0.0-7.0); Lymphocytes # (auto) 0.2 10 ^3/uL (0.4-5.4)
[2021-12-26 21:30] LABS: Basophils % (auto) 0.3 % (0.0-2.0); Hematocrit 21.1 % (36.0-46.0); Lymphocytes % (auto) 2.5 % (10.0-50.0); Mean Corpuscular Hemoglobin 30.2 pg (28.0-32.0); Mean Corpuscular Hgb Conc. 32.5 g/dL (32.0-36.0); Monocytes # (auto) 0.8 10 ^3/uL (0-1.3); Monocytes % (auto) 9.3 % (0.0-12.0); Neutrophils # (auto) 7.8 10 ^3/uL (1.6-8.6); Neutrophils % (auto) 87.4 % (37.0-80.0); Nucleated Red Blood Cells % 0.1 %; Red Blood Cells 2.27 10^6/uL (4.0-5.20); Red Cell Distribution Width 24.5 % (11.8-14.3)
[2021-12-26 21:31] LABS: Hemoglobin 6.9 g/dL (12.2-16.2)
[2021-12-26 21:37] LABS: Calcium 8.2 mg/dL (8.5-10.1); Potassium 3.9 mmol/L (3.5-5.1)
[2021-12-26 21:38] LABS: BUN/Creatinine Ratio 47.4
[2021-12-27] VITALS (94 sets, daily range): BP systolic 49–132; BP diastolic 28–84
[2021-12-27] MEDS: FUROSEMIDE 40 MG/4 ML VIAL IV SCH (00:16)
[2021-12-27] MEDS: NOREPINEPHRINE 8 MG/250ML KIT 250 ML IV SCH ×2 (00:16→10:15)
[2021-12-27] MEDS: APIXABAN 5 MG TAB PO SCH ×2 (10:00→20:27)
[2021-12-27] MEDS: ASPirin 81 mg TAB PO SCH (10:21)
[2021-12-27] MEDS: MIDAZOLAM DRIP 50 mg/50mL 50 ML IV SCH (10:21)
[2021-12-27] MEDS: PANTOPRAZOLE 40 MG/10 ML VIAL INJ IV SCH (10:21)
[2021-12-27] MEDS: fentaNYL Drip 2500mCg/250mlNS 250 ML IV SCH (12:10)
[2021-12-27] MEDS: MORPHINE SULFATE INJ 2 MG/ml SYRG IV PRN ×4 (12:47→21:53)
[2021-12-27] MEDS: LORazepam 2MG/ML-1ML VIAL IV PRN ×4 (12:47→21:53)
[2021-12-27] MEDS: SOD CHL 0.45% 1,000 ML IV SCH ×2 (13:54→21:37)
[2021-12-28] VITALS (19 sets, daily range): BP systolic 62–94; BP diastolic 35–60
[2021-12-28] MEDS: LORazepam 2MG/ML-1ML VIAL IV PRN ×6 (01:23→17:36)
[2021-12-28] MEDS: MORPHINE SULFATE INJ 2 MG/ml SYRG IV PRN ×7 (01:24→16:45)
[2021-12-28] MEDS: ASPirin 81 mg TAB PO SCH (10:00)
[2021-12-28] MEDS: APIXABAN 5 MG TAB PO SCH ×2 (10:00→22:00)
[2021-12-28] MEDS: FUROSEMIDE 40 MG/4 ML VIAL IV SCH (10:00)
[2021-12-28] MEDS: PANTOPRAZOLE 40 MG/10 ML VIAL INJ IV SCH (10:00)
[2021-12-28] MEDS: MIDAZOLAM DRIP 50 mg/50mL 50 ML IV SCH (10:04)
[2021-12-28] MEDS: NOREPINEPHRINE 8 MG/250ML KIT 250 ML IV SCH (10:04)
[2021-12-28] MEDS: SOD CHL 0.45% 1,000 ML IV SCH (16:00)
[2021-12-29 00:36] VITALS: BP 98/62
[2021-12-29] MEDS: MORPHINE SULFATE INJ 2 MG/ml SYRG IV PRN (00:36)
== END 2021-12-29 01:28 | DRG 870 ==
LOC: EDBD 12:03 → ER 12:03 → TELE 19:34 → ICU WEST 12-12 08:13 → TELE-WESTW 12-15 01:35 → ICU WEST 12-16 10:39 → DOU IN ICU 12-28 08:15
PROVIDERS: ADMIT Registered Nurse; ATTEND Hospitalist
PROC: 05HC33Z Insertion of Infusion Device into Left Basilic Vein, Percutaneous Approach (ICD-10-PCS; 2021-12-14)
PROC: B54NZZA Ultrasonography of Left Upper Extremity Veins, Guidance (ICD-10-PCS; 2021-12-14)
PROC: 5A1955Z Respiratory Ventilation, Greater than 96 Consecutive Hours (ICD-10-PCS; principal; 2021-12-16)
PROC: 0BH17EZ Insertion of Endotracheal Airway into Trachea, Via Natural or Artificial Opening (ICD-10-PCS; 2021-12-16)
PROC: 02HV33Z Insertion of Infusion Device into Superior Vena Cava, Percutaneous Approach (ICD-10-PCS; 2021-12-16)
PROC: B548ZZA Ultrasonography of Superior Vena Cava, Guidance (ICD-10-PCS; 2021-12-16)
PROC: 5A12012 Performance of Cardiac Output, Single, Manual (ICD-10-PCS; 2021-12-16)
DX: A41.9 Sepsis, unspecified organism (principal); J96.01 Acute respiratory failure with hypoxia; N17.0 Acute kidney failure with tubular necrosis; E43 Unspecified severe protein-calorie malnutrition; G92.8 Other toxic encephalopathy; I50.30 Unspecified diastolic (congestive) heart failure; E87.1 Hypo-osmolality and hyponatremia; I48.20 Chronic atrial fibrillation, unspecified; E87.0 Hyperosmolality and hypernatremia; J84.9 Interstitial pulmonary disease, unspecified; I46.9 Cardiac arrest, cause unspecified; R57.1 Hypovolemic shock; E87.5 Hyperkalemia; E86.0 Dehydration; R80.9 Proteinuria, unspecified; D69.6 Thrombocytopenia, unspecified; E66.9 Obesity, unspecified; R00.1 Bradycardia, unspecified; R53.81 Other malaise; S00.83XA Contusion of other part of head, initial encounter; N18.9 Chronic kidney disease, unspecified; Z20.822 Contact with and (suspected) exposure to COVID-19; W01.0XXA Fall on same level from slipping, tripping and stumbling without subsequent striking against object, initial encounter; G89.29 Other chronic pain; L89.616 Pressure-induced deep tissue damage of right heel; L89.151 Pressure ulcer of sacral region, stage 1; Z66 Do not resuscitate; L89.120 Pressure ulcer of left upper back, unstageable; S81.802A Unspecified open wound, left lower leg, initial encounter; M54.50 Low back pain, unspecified; S81.801A Unspecified open wound, right lower leg, initial encounter; L89.110 Pressure ulcer of right upper back, unstageable; D64.9 Anemia, unspecified; E87.6 Hypokalemia; I48.0 Paroxysmal atrial fibrillation; R29.6 Repeated falls; Y93.89 Activity, other specified; Y92.89 Other specified places as the place of occurrence of the external cause; Z79.01 Long term (current) use of anticoagulants; Z68.33 Body mass index [BMI] 33.0-33.9, adult; Z51.5 Encounter for palliative care; Y99.8 Other external cause status; Z91.81 History of falling
CPT/HCPCS: 36415; 36600; 70450; 70486; 71045; 72125; 72192; 73030; 76775; 80048; 80053; 80061; 80162; 80202; 80307; 81001; 82306; 82533; 82550; 82570; 82805; 82962; 83605; 83735; 83880; 83970; 84100; 84132; 84156; 84300; 84443; 84484; 85007; 85025; 85027; 85610; 85730; 87040; 87070; 87077; 87081; 87086; 87186; 87205; 92610; 92950; 93005; 93306; 93886; 94002; 94003; 94640; 96361; 96365; 96366; 96367; 96368; 96372; 96375; C9113; G0378; J0696; J1956; J2250; J2405; J2543; J3480; J3490; J7060; P9047